=== PATIENT | male | born 1995 | race African-American/Black ===

== ENCOUNTER 2019-02-08 00:23 | Emergency (ER) | payer MEDICAID, SELFPAY ==
[2019-02-08 00:24] VITALS: BP 127/84; PULSE 73; RESP 18; TEMP 36.8; O2SAT 99; BMI 24.2
--- NOTE | 2019-02-08 00:48 | CT_ITS ---
STUDY: CT ABDOMEN AND PELVIS WITHOUT CONTRAST REASON FOR EXAM: Male, 23 years old. ABDOMEN PAIN,NAUSEA,vomiting and diarrhea since yesterday-some episodes with blood in stool -- Hx:cavernoma with a shunt RADIATION DOSAGE (If Supplied By Facility): CTDIvol = ( 6.27 ) mGy, DLP = ( 324.27 ) mGycm TECHNIQUE: Transaxial images were obtained from the dome of the diaphragm to the symphysis pubis without oral contrast, and without intravenous contrast. Sagittal and coronal images were reconstructed. Individualized dose optimization techniques were used for this CT. COMPARISON: None. FINDINGS: There is mild atelectasis in the visualized lung bases. The visualized portions of the heart are within normal limits. There is a right-sided MIXED CROP FARMER shunt catheter, with its tip in the left anterior pelvis. Normal liver. Normal gallbladder and extrahepatic biliary system. Normal spleen. Normal pancreas. Normal bilateral adrenal glands. Normal right kidney. Normal left kidney. Normal visualized stomach. Normal small intestine. Normal colon. The appendix is visualized on axial images 133-142 and it appears normal.. Normal abdominal aorta. Normal inferior vena cava. Normal retroperitoneum. Normal urinary bladder. There is a small amount of free fluid in the posterior cul-de-sac and the pelvis, there are indeterminate etiology. This might be related to the MIXED CROP FARMER shunt catheter. Normal abdominal wall. Normal osseous structures. CT/Abdomen/Pelvis without Cont IMPRESSION: MIXED CROP FARMER shunt catheter in place. Small amount of free fluid in the posterior cul-de-sac of the pelvis, indeterminate significance. Otherwise, normal noncontrast CT scan. No evidence for appendicitis or diverticulitis. No evidence for bowel obstruction or ileus. Electronically Signed: Andrés Jang MD at 1:56 EST , Service support ,
--- NOTE | 2019-02-08 00:49 | ED.VIS.GEN ---
History of Present Illness Chief Complaint: Abd Pain Informant: Patient Narrative: Patient presents with nausea vomiting since yesterday. He has had 6 episodes of emesis. He has had diffuse abdominal cramping with occasional sharp pains. He has had 20 episodes of diarrhea. It started out loose and watery and the last few is had some blood mixed in. No recent antibiotics. He is never had this before. Current severity is mild to moderate. No home treatment. No recent trips out of the country. No fevers or chills. Has a chronic COMMERCIAL OCEAN CLAMMER shunt for hydrocephalus over the last 4 years. He stated he is not having problems with this. It does give him chronic pain which she stated is at its baseline. Denies any visual difficulties. Denies any urinary symptoms or back pain. Past Medical History - Allergies and Home Meds Allergies/Adverse Reactions: Allergies fosphenytoin Adverse Reaction (Verified 02/08/19 00:26) Itching Primary Care Physician: NOT,DEFINED [NON-STAFF] - Prior records reviewed: Yes Past Medical History: - - Hydrocephalus, stroke Surgical History: - - COMMERCIAL OCEAN CLAMMER shunt Lives: With Family Smoking Status: Current every day smoker Alcohol: None Drugs: None Review of Systems General: Denies: Chills, Fever, Sweats Eyes: Denies: Visual changes - bilaterally, Diplopia ENT: Denies: Rhinorrhea, Sore throat Cardiovascular: Denies: Chest pain, Palpitations Respiratory: Denies: Dyspnea, Cough, Dyspnea on exertion Gastrointestinal: Reports: Abdominal pain, Nausea, Vomiting, Diarrhea, Hematochezia. Denies: Melena Genitourinary: Denies: Dysuria, Hematuria, Frequency Musculoskeletal: Denies: Back pain, Extremity Pain Skin: Denies: Rash, Wounds Neurological: Denies: Headache, Weakness, Numbness Physical Exam Vital Signs/Narrative: Vital Signs Temp Pulse Resp BP Pulse Ox 02/08/19 00:24 98.2 F 73 18 127/84 H 99 General: Well nourished, Well developed, No Acute Distress Head: Normocephalic, Atraumatic Eyes: Perrl, EOMI ENT: Moist mucous membranes, No rhinorrhea Neck: Supple, Nontender Cardiovascular: Regular rate, Regular rhythm, No murmurs Respiratory: No distress, CTA bilaterally, Chest nontender Abdomen: Soft, Nontender, Nondistended, Normal bowel sounds Back: Nontender, Normal Inspection Extremities: Nontender, No edema Skin: Normal color, No rash Neurological: Alert, Oriented x3, Cranial nerves II-XII grossly intact, Normal Strength, Normal Sensation Psychological: Normal affect, Normal Mood Diagnostic/Tx/Re-eval - Medical Decision Making IV fluids, Zofran, morphine. Lab work and CT abdomen pelvis obtained. Lab work shows no significant abnormalities. Lipase is mildly low. Liver function test negative. CBC shows no leukocytosis. CT abdomen pelvis shows mild fluid in the cul-de-sac otherwise nothing acute. At this time I feel the patient likely has infectious hemorrhagic gastroenteritis. He will be given ciprofloxacin first dose here. He will continue this at home. He will be given Zofran for home. Feels much better after treatment. ED Disposition - Plan for ED Patient: Disposition: Home or Assisted Living Diagnosis: Hemorrhagic enteritis Instructions: Bacterial Gastroenteritis Prescriptions: Ciprofloxacin [Cipro] 500 mg PO BID #14 tab Prescription Printed Ondansetron [Zofran Odt] 4 mg PO Q8H PRN PRN #10 tab PRN Reason: Nausea Prescription Printed Referrals: Oh Hutton DO [NON CLINICAL AFFILIATE] -
[2019-02-08 00:59] LABS: Absolute Lymphocyte Count 1.65 X10^3/uL (0.83-4.51); Absolute Neutrophil Count 1.5 X10^3/uL (2.0-7.7); Basophil# 0.02 X10^3/uL; Basophil% 0.5 % (0-1); Eosinophil# 0.08 X10^3/uL; Eosinophils% 2.1 % (0-5); Hematocrit 44.5 % (40-54); Lymphocyte # 1.65 X10^3/ul (4.0); Lymphocyte % 43.9 % (19-41); Mean Corp Hgb Conc 33.7 g/dL (32-36); Mean Corpuscular Hgb 29.6 pg (27.0-32.0); Mean Corpuscular Volume 87.8 fL (80-94); Mean Platelet Vol. 9.8 fl (6.2-12.0); Monocyte# 0.47 X10^3/uL; Monocyte% 12.5 % (0-10); NRBC Flagged by Analyzer 0 % (0-5); Neutrophil # 1.53 X10^3/uL (2.7-7.7); Neutrophil % 40.7 % (47-70); Platelet Count 215 K/mm3 (150-450); RBC Distribution Width CV 12.4 % (11.6-14.6); RBC Distribution Width SD 39.9 fl (35.1-43.9); Red Blood Count 5.07 M/mm3 (4.6-6.2); White Blood Count 3.8 K/mm3 (4.4-11.0)
[2019-02-08] MEDS: Ondansetron 4 MG/2 ML Vial IV (01:00)
[2019-02-08] MEDS: 0.9% Normal Saline 1,000 ML 1000 ML IV (01:00)
[2019-02-08] MEDS: Morphine 4 MG/ML Syringe IV (01:02)
[2019-02-08 01:15] LABS: ALB/GLOB Ratio 1.1 RATIO (0.9-2.4); AST(SGOT) 8 U/L (15-37); Alanine Aminotransfer ALT/SGPT 19 U/L (16-61); Albumin, Serum 3.9 g/dL (3.2-5.0); Alkaline Phosphatase 58 U/L (45-117); Anion Gap 5 (5-15); BUN 17 mg/dL (7-18); BUN/Creat Ratio 13.7 RATIO (10-20); Calcium,Total 9.3 mg/dL (8.5-10.1); Chloride 107 mmol/L (98-107); Creatinine, Serum 1.24 mg/dL (0.70-1.30); EST Glomerular Filtration Rate 78 mL/min (>60); Est Glom Filt Rate - Afr Amer 95 mL/min (>60); Estimated Creatinine Clearance 94.23 ml/min; Globulin 3.7 g/dL (2.2-4.2); Glucose 95 mg/dL (74-106); Lipase 43 U/L (73-393); Potassium 3.8 mmol/L (3.5-5.1); Protein, Total 7.6 g/dL (6.4-8.2); Sodium Level 140 mmol/L (136-145)
[2019-02-08] MEDS: Ciprofloxacin 500 MG Tablet PO (03:07)
[2019-02-08 03:12] VITALS: BP 122/60; PULSE 60; RESP 18; O2SAT 100
== END 2019-02-08 03:13 | disposition home or self-care (01) ==
PROVIDERS: Emergency Provider Emergency Medicine; Family Provider Pediatrics; PCP Pediatrics
DX: K52.9 Noninfective gastroenteritis and colitis, unspecified (principal); G91.9 Hydrocephalus, unspecified; Z86.73 Personal history of transient ischemic attack (TIA), and cerebral infarction without residual deficits; Z98.2 Presence of cerebrospinal fluid drainage device; Z46.82 Encounter for fitting and adjustment of non-vascular catheter; G89.29 Other chronic pain; F17.200 Nicotine dependence, unspecified, uncomplicated
CPT/HCPCS: 74176; 80053; 83690; 85025; 96361; 96374; 96375; 99284; J7030; A4216; J2405

== ENCOUNTER 2019-03-28 09:13 | Emergency (ER) | payer MEDICAID, SELFPAY ==
[2019-03-28 09:15] VITALS: BP 154/73; PULSE 130; RESP 35; TEMP 36.2; O2SAT 92; BMI 22.8
--- NOTE | 2019-03-28 09:16 | CT_ITS ---
STUDY: CT BRAIN WITHOUT CONTRAST REASON FOR EXAM: Male, 23 years old. Found unresponsive on floor, no gag reflex, seizures today, hx of seizures, shunt, cavernoma. RADIATION DOSAGE (If Supplied By Facility): CTDIvol = ( 44.99 ) mGy, DLP = ( 796.11 ) mGycm TECHNIQUE: Transaxial CT imaging of the brain was performed without administration of intravenous contrast material. Individualized dose optimization techniques were used for this CT. COMPARISON: Comparison is made with prior study dated February 26, 2015. FINDINGS: Normal soft tissue structures. Prior right frontal craniotomy. A right-sided ventricular shunt tube is seen with the tip in the right frontal horn. Normal size ventricles and extra-axial spaces for the patient''s age. At this time, there is evidence of encephalomalacia in the right frontal lobe with the mild dilatation of the right frontal horn due to the encephalomalacia. This most likely is due to prior surgical intervention of the patient''s known cavernoma. Normal basal ganglia and thalami. Normal brainstem. Normal cerebellum. There is no intracranial hemorrhage. There are no findings of an acute ischemic infarction. Partial opacification of the maxillary sinuses as well as the ethmoid sinuses bilaterally. CT/Brain/Head without Contrast IMPRESSION: Encephalomalacia in the right frontal lobe most likely postoperative in nature. Sinusitis. Electronically Signed: Kanu Almaraz, at 9:56 EST , Service support ,
--- NOTE | 2019-03-28 09:16 | EKG12_ITS ---
Test Reason : SEIZURE Blood Pressure : / mmHG Vent. Rate : 118 BPM Atrial Rate : 118 BPM P-R Int : 152 ms QRS Dur : 086 ms QT Int : 340 ms P-R-T Axes : 080 079 001 degrees QTc Int : 476 ms Sinus tachycardia Nonspecific ST-T Changes Abnormal ECG Confirmed by GARRY VERA, CAROL ([id number]), news assignment editor KIRSTEN SOUZA ([id number]) on 04/02/2019 2:27:16 PM Referred By: PURNIMA Confirmed By:FARRAH CASTAÑEDA MD
--- NOTE | 2019-03-28 09:25 | ED.RN ---
arrived by squad with spontaneous on ra though no gag reflex upon suctioning and no response to painful stimuli. pt to radiology with jennyfer lu.
[2019-03-28 09:34] LABS: Absolute Lymphocyte Count 9.68 X10^3/uL (0.83-4.51); Absolute Neutrophil Count 0.3 X10^3/uL (2.0-7.7); Basophil# 0.06 X10^3/uL; Basophil% 0.6 % (0-1); Eosinophil# 0.09 X10^3/uL; Eosinophils% 0.8 % (0-5); Hematocrit 49.2 % (40-54); Hemoglobin 14.7 g/dL (13.0-16.5); Lymphocyte # 9.68 X10^3/ul (4.0); Lymphocyte % 90.6 % (19-41); Mean Corp Hgb Conc 29.9 g/dL (32-36); Mean Corpuscular Hgb 29.5 pg (27.0-32.0); Mean Corpuscular Volume 98.6 fL (80-94); Mean Platelet Vol. 11.3 fl (6.2-12.0); Monocyte% 5.6 % (0-10); NRBC Flagged by Analyzer 0 % (0-5); Neutrophil # 0.25 X10^3/uL (2.7-7.7); Neutrophil % 2.3 % (47-70); POSITIVE DIFFERENTIAL YES; POSITIVE MORPHOLOGY YES; Platelet Count 177 K/mm3 (150-450); RBC Distribution Width CV 12.7 % (11.6-14.6); RBC Distribution Width SD 45.9 fl (35.1-43.9); Red Blood Count 4.99 M/mm3 (4.6-6.2); White Blood Count 10.7 K/mm3 (4.4-11.0)
[2019-03-28] MEDS: Etomidate 20 MG/10 ML Vial IV (09:35)
[2019-03-28] MEDS: Rocuronium Bromide 50 MG/5 ML Vial 70 MG IV (09:36)
[2019-03-28 09:40] VITALS: PULSE 116; RESP 16; O2SAT 100
[2019-03-28 09:43] LABS: Differential Indicated SCAN CRITERIA MET
[2019-03-28] MEDS: 0.9% Normal Saline 1,000 ML 1000 ML IV (09:43)
--- NOTE | 2019-03-28 09:49 | ED.DCSUM_ITS ---
History of Present Illness Chief Complaint: Seizure Informant: Patient Onset: Today Context: Sudden Onset Timing: Continuous Current Severity: Severe Maximum Severity: Severe Narrative: The patient is a 23-year-old male with history of seizure disorder and AVMs that presents to the emergency department with recurrent seizure. The patient was found by his roommate this morning. He was on the side of his bed and not responsive. Squad was called. On squad arrival, the patient had 2 witnessed tonic-clonic seizures. He did have tongue biting and urinary incontinence. IV was established in the field. He was given 5 mg of Versed. The patient was brought in immediately. The patient is obtunded and gives no history. He has no spontaneous movements. He does have rather coarse lung sounds. He does have a bag of medications with him which are reviewed. He does have prescriptions for Depakote and Keppra, but the most recent fill date was last year. Prior similar symptoms: Yes Recent Illness/Hospitalization: Yes Past Medical History - Allergies and Home Meds Allergies/Adverse Reactions: Allergies fosphenytoin Adverse Reaction (Verified 02/08/19 00:26) Itching Primary Care Physician: Nicholas Schneider MD [Primary Care Provider] - Prior records reviewed: Yes Past Medical History: - - Seizure disorder Surgical History: - - OFFICE SERVICES REPRESENTATIVE shunt Smoking Status: Current every day smoker Review of Systems ROS: Unable to Obtain Physical Exam Vital Signs/Narrative: Vital Signs Temp Pulse Resp BP Pulse Ox 03/28/19 09:15 97.1 F L 130 H 35 H 154/73 H 92 Inital Vital Signs reviewed: Yes General: Acute Distress Head: Normocephalic, Atraumatic Eyes: Perrl ENT: Moist mucous membranes Cardiovascular: Regular rate, Tachycardia Respiratory: Rhonchi, Decreased Air Movement Abdomen: Soft, Nontender, Nondistended Extremities: Nontender, No edema Skin: No rash. Negative for: Cyanosis Neurological: Stupor, Coma Diagnostic/Tx/Re-eval Chest X-Ray - ED: 1 View, Normal, Heart, Lungs, Mediastinum Clinical Impression(s) from Imaging Studies Brain CT 03/28/19 09:16 IMPRESSION: Encephalomalacia in the right frontal lobe most likely postoperative in nature. Sinusitis. Electronically Signed: Kanu Almaraz, at 9:56 EST , Service support , Abnormal Lab Results 03/28/19 03/28/19 03/28/19 09:20 09:20 10:02 WBC 10.7 RBC 4.99 Hgb 14.7 Hct 49.2 MCV 98.6 H MCH 29.5 MCHC 29.9 L RDW Std Deviation 45.9 H RDW Coeff of Rene 12.7 Plt Count 177 MPV 11.3 Immature Gran % (Auto) 0.100 Neut % (Auto) 2.3 L Lymph % (Auto) 90.6 H [place] % (Auto) 5.6 Eos % (Auto) 0.8 Baso % (Auto) 0.6 Absolute Neuts (auto) 0.3 L Absolute Lymphs (auto) 9.68 H Nucleated RBC % 0 Differential Comment COMMENT Sodium 147 H Potassium 3.7 Chloride 109 H Carbon Dioxide 9.0 L* Anion Gap 29 H BUN 14 Creatinine 1.68 H Estim Creat Clear Calc 75.01 Est GFR (MDRD) Af Amer 67 Est GFR (MDRD) Non-Af 55 L BUN/Creatinine Ratio 8.3 L Glucose 290 H Calcium 10.7 H Total Bilirubin 0.30 AST 14 L ALT 23 Alkaline Phosphatase 90 Total Protein 8.5 H Albumin 3.9 Globulin 4.6 H Albumin/Globulin Ratio 0.8 L Ur Drug Screen Comment - Medical Decision Making The patient presents after seizure without return to consciousness. He does have some gaze deviation, but no rhythmic moving of his eyes. The patient was observed for 15 minutes after his Versed and still has not returned to baseline. He has no gag reflex. The patient was intubated. He was given rocuronium and etomidate. He was intubated with a 7.5 tube and a MAC 3 blade. This was done without complication. He had bilateral breath sounds and color change. There was secretions in the retropharynx and some blood from his tongue biting. Patient was sent immediately for head CT which shows encephalomalacia without evidence of bleeding. His shunt is intact. Chest x-ray confirms placement of the tube. The patient was given 17 mg/kg of Depakote as he is on this at home along with a gram of Keppra. He is obviously going to need a higher level of care. The patient was discussed with Dr. Gonsalez at [facility]. He agreed with plan for transfer. The friend at the bedside is updated. The patient will be transferred to the ICU. We did obtain a blood gas prior to transfer. The patient was significantly acidotic. I did discuss this with the real estate salesperson at [facility]. The patient was given 3 A of bicarb and started on bicarb drip. His ventilator settings were titrated to increase ventilation. Repeat ABG was markedly improved. The patient will be transferred. Impression 1. Status epilepticus 2. Acute encephalopathy 3. Respiratory failure secondary to status epilepticus 4. Intubation by ED physician - Critical Care Time Critical care time (excluding procedures): 30-74 minutes, Discussing w/Patient &/or Family/Tank Truck Driver, Discussing w/Consultants, Arranging Admission or Transfer, Performing Direct Patient Care at Bedside Procedures Procedure(s): Intubation done. Please see note. ED Disposition - Plan for ED Patient: Referrals: Nicholas Schneider MD [Primary Care Provider] -
--- NOTE | 2019-03-28 09:50 | RAD_ITS ---
STUDY: X-RAY CHEST REASON FOR EXAM: Male, 23 years old. ETT PLACEMENT AND NG PLACEMENT. TECHNIQUE: Single AP portable view of the chest. COMPARISON: None. FINDINGS: The tip of the endotracheal tube is at 4 cm proximal to the arely. A nasogastric tube is seen with the tip in the proximal fundus of the stomach just distal to the gastroesophageal junction. The lungs are clear and expanded. There is no demonstrated pleural abnormality. Normal size heart. Normal mediastinum and pepe. Normal visualized pulmonary arteries. Normal visualized aortic arch and descending thoracic aorta. Normal visualized thoracic spine. Normal visualized ribs, clavicles, and shoulders. There is no demonstrated abnormality of the visualized soft tissue structures of the upper abdomen. RAD/Chest 1 View (Portable) IMPRESSION: The tip of the endotracheal tube is at 4 cm proximal to the arely. The tip of nasogastric tube is in the proximal stomach just distal to the gastroesophageal junction. Electronically Signed: Kanu Almaraz, at 10:27 EST , Service support ,
[2019-03-28 09:57] LABS: ALB/GLOB Ratio 0.8 RATIO (0.9-2.4); AST(SGOT) 14 U/L (15-37); Alanine Aminotransfer ALT/SGPT 23 U/L (16-61); Albumin, Serum 3.9 g/dL (3.2-5.0); Alkaline Phosphatase 90 U/L (45-117); Anion Gap 29 (5-15); BUN 14 mg/dL (7-18); BUN/Creat Ratio 8.3 RATIO (10-20); Calcium,Total 10.7 mg/dL (8.5-10.1); Chloride 109 mmol/L (98-107); Creatinine, Serum 1.68 mg/dL (0.70-1.30); EST Glomerular Filtration Rate 55 mL/min (>60); Est Glom Filt Rate - Afr Amer 67 mL/min (>60); Estimated Creatinine Clearance 75.01 ml/min; Globulin 4.6 g/dL (2.2-4.2); Glucose 290 mg/dL (74-106); Potassium 3.7 mmol/L (3.5-5.1); Protein, Total 8.5 g/dL (6.4-8.2); Sodium Level 147 mmol/L (136-145)
[2019-03-28 10:06] LABS: Bacteria 0 SEEN /hpf (None Seen); Mucous, Urine 0 SEEN /hpf (<or=2+); Squamous Epithelial Cells - UA 0 SEEN /hpf (0-5); White Blood Cells 0 SEEN /hpf (0-5)
[2019-03-28] MEDS: 0.9% Normal Saline 1,000 ML 999 ML IV ×2 (10:06→11:07)
[2019-03-28 10:14] VITALS: BP 155/92; PULSE 129; RESP 14; O2SAT 98
[2019-03-28 10:19] LABS: Color, Urine Yellow (Yellow); Glucose, Dipstick 100 mg/dl (Normal); Ketone-Dipstick Negative (Negative); Leukocyte Esterase-Dipstick Negative /ul (Negative); Nitrite-Dipstick Negative (Negative); Occult Blood-Urine 50 /ul (Negative); Protein-Dipstick 30 mg/dl (Negative); Specific Gravity, Urine 1.015 (1.002-1.030); Urine Bilirubin Dipstick Negative (Negative); Urine Clarity Clear (Clear); Urine Urobilinogen Normal (Normal)
[2019-03-28 10:22] LABS: Lactic Acid 25.4 mmol/L (0.4-1.9)
[2019-03-28 10:26] LABS: Base Excess -28 mmol/L (-2 to +2); Bicarbonate 7.4 mmol/L (22-26); Blood Gas Specimen Type ART; FI02 40; Mode A-C; O2 Delivery Device Vent; PEEP 5; PO2 127 mmHG (75-100); RR 14; SITE R Radial; SO2 93 % (95-99); Time Given 1017; Total Carbon Dioxide 9 mmol/L; Vt 500; pCO2 49.8 mmHg (35-45); pH 6.78 (7.35-7.45)
[2019-03-28 10:43] LABS: Red Blood Cells-Urine 0-5 SEEN /hpf (0-5)
[2019-03-28] MEDS: levETIRAcetam IV 1,000 MG/100 ML BAG 400 MG IV (10:51)
[2019-03-28] MEDS: Sodium Bicarbonate 8.4% 50 ML Syringe 150 MEQ IV (10:53)
[2019-03-28 10:56] VITALS: BP 189/115; PULSE 124; RESP 22; O2SAT 99
[2019-03-28 11:05] LABS: Valproic Acid (Depakene) Level 16 ug/mL (50-100)
[2019-03-28 11:07] LABS: CPK Total, Creatine Kinase 143 U/L (39-308)
[2019-03-28 11:15] LABS: Base Excess -10 mmol/L (-2 to +2); Bicarbonate 16.8 mmol/L (22-26); Blood Gas Specimen Type ART; FI02 40; Mode A-C; O2 Delivery Device Vent; PEEP 5; PO2 79 mmHG (75-100); RR 18; SITE L Radial; SO2 94 % (95-99); Time Given 1107; Total Carbon Dioxide 18 mmol/L; Vt 500; pCO2 37.4 mmHg (35-45); pH 7.26 (7.35-7.45)
[2019-03-28 11:17] LABS: Amphetamine Urine VISTA NEGATIVE (<1000 ng/mL); Barbiturate Urine VISTA NEGATIVE (< 200 ng/mL); Benzodiazepine Urine VISTA NEGATIVE (< 200 ng/mL); Cocaine Urine VISTA NEGATIVE (< 300 ng/mL); Ecstacy Urine VISTA NEGATIVE (< 500 ng/mL); Methadone Urine VISTA NEGATIVE (< 300 ng/mL); PCP Urine VISTA NEGATIVE (< 25 ng/mL); THC Urine VISTA POSITIVE (< 50 ng/mL); Vista UDS pH Range 6
[2019-03-28 11:18] VITALS: BP 151/84; PULSE 123; RESP 23; TEMP 36.2; O2SAT 100
--- NOTE | 2019-03-28 11:46 | CPS ---
CRITICAL VALUE SHOWN TO .
[2019-03-28 13:25] LABS: Reflex Lactate? Y
[2019-03-28 15:11] LABS: Pathologist Review Reviewed
== END 2019-03-28 11:18 | disposition short-term general hospital (02) ==
LOC: ED 09:49
PROVIDERS: Emergency Provider Emergency Medicine; PCP Pediatrics
DX: G40.901 Epilepsy, unspecified, not intractable, with status epilepticus (principal); G93.40 Encephalopathy, unspecified; J96.90 Respiratory failure, unspecified, unspecified whether with hypoxia or hypercapnia; Z98.2 Presence of cerebrospinal fluid drainage device; G93.89 Other specified disorders of brain; F17.200 Nicotine dependence, unspecified, uncomplicated; J32.9 Chronic sinusitis, unspecified
CPT/HCPCS: 31500; 36600; 51702; 70450; 71045; 80053; 80164; 80307; 81001; 82550; 82803; 83605; 85025; 93005; 94002; 96365; 96366; 96368; 99251; 99285; J7030; A4216; G0463

== ENCOUNTER → 2020-12-22 05:00 | Outpatient (REF) | payer MEDICAID, SELFPAY ==
[2020-12-22 08:45] LABS: Absolute Lymphocyte Count 2.48 X10^3/uL (0.83-4.51); Absolute Neutrophil Count 1.6 X10^3/uL (2.0-7.7); Basophil# 0.03 X10^3/uL; Basophil% 0.6 % (0-1); Eosinophil# 0.05 X10^3/uL; Eosinophils% 1.1 % (0-5); Hematocrit 35.3 % (40-54); Hemoglobin 11.6 g/dL (13.0-16.5); Lymphocyte # 2.48 X10^3/ul (0.83-4.51); Lymphocyte % 52.5 % (19-41); Mean Corp Hgb Conc 32.9 g/dL (32-36); Mean Corpuscular Hgb 27.3 pg (27.0-32.0); Mean Corpuscular Volume 83.1 fL (80-94); Mean Platelet Vol. 9.8 fl (6.2-12.0); Monocyte# 0.55 X10^3/uL; Monocyte% 11.7 % (0-10); NRBC Flagged by Analyzer 0 % (0-5); Neutrophil # 1.61 X10^3/uL (2.7-7.7); Neutrophil % 34.1 % (47-70); Platelet Count 208 K/mm3 (150-450); RBC Distribution Width SD 48.3 fl (35.1-43.9); Red Blood Count 4.25 M/mm3 (4.6-6.2); White Blood Count 4.7 K/mm3 (4.4-11.0)
[2020-12-22 09:14] LABS: Valproic Acid (Depakene) Level 91 ug/mL (50-100)
[2020-12-22 09:24] LABS: Vitamin B12 394 pg/mL (211-911)
[2020-12-22 09:26] LABS: ALB/GLOB Ratio 0.6 RATIO (0.9-2.4); AST(SGOT) 10 U/L (15-37); Alanine Aminotransfer ALT/SGPT 16 U/L (16-61); Albumin, Serum 2.7 g/dL (3.2-5.0); Alkaline Phosphatase 95 U/L (45-117); Anion Gap 6 (5-15); BUN 15 mg/dL (7-18); BUN/Creat Ratio 16.6 RATIO (10-20); CPK Total, Creatine Kinase 70 U/L (39-308); Calcium,Total 9.2 mg/dL (8.5-10.1); Chloride 107 mmol/L (98-107); EST Glomerular Filtration Rate 111 mL/min (>60); Est Glom Filt Rate - Afr Amer 134 mL/min (>60); Globulin 4.3 g/dL (2.2-4.2); Glucose 90 mg/dL (74-106); Potassium 4.5 mmol/L (3.5-5.1); Sodium Level 139 mmol/L (136-145); T4 Free Direct 1.22 ng/dL (0.76-1.46); Thyroid Stim Hormone (TSH) 0.48 uIU/mL (0.358-3.74)
== END ==
LOC: OLS.SW1020 05:00
PROVIDERS: PCP Pediatrics
DX: G40.309 Generalized idiopathic epilepsy and epileptic syndromes, not intractable, without status epilepticus (principal); M62.81 Muscle weakness (generalized)
CPT/HCPCS: 36415; 80053; 80164; 82088; 82550; 82607; 82746; 82784; 84165; 84207; 84425; 84439; 84443; 85025; 86334

== ENCOUNTER → 2021-01-15 05:00 | Outpatient (REF) | payer MEDICAID, SELFPAY ==
[2021-01-15 08:47] LABS: Absolute Lymphocyte Count 2.98 X10^3/uL (0.83-4.51); Absolute Neutrophil Count 1.7 X10^3/uL (2.0-7.7); Basophil# 0.02 X10^3/uL; Basophil% 0.4 % (0-1); Eosinophil# 0.06 X10^3/uL; Eosinophils% 1.2 % (0-5); Hemoglobin 11.5 g/dL (13.0-16.5); Lymphocyte # 2.98 X10^3/ul (0.83-4.51); Lymphocyte % 57.9 % (19-41); Mean Corp Hgb Conc 31.9 g/dL (32-36); Mean Corpuscular Hgb 27.2 pg (27.0-32.0); Mean Corpuscular Volume 85.1 fL (80-94); Mean Platelet Vol. 10.1 fl (6.2-12.0); Monocyte# 0.39 X10^3/uL; Monocyte% 7.6 % (0-10); NRBC Flagged by Analyzer 0 % (0-5); Neutrophil # 1.69 X10^3/uL (2.7-7.7); Neutrophil % 32.7 % (47-70); Platelet Count 179 K/mm3 (150-450); RBC Distribution Width CV 15.9 % (11.6-14.6); RBC Distribution Width SD 49.6 fl (35.1-43.9); Red Blood Count 4.23 M/mm3 (4.6-6.2); White Blood Count 5.2 K/mm3 (4.4-11.0)
[2021-01-15 09:01] LABS: ALB/GLOB Ratio 0.6 RATIO (0.9-2.4); AST(SGOT) 9 U/L (15-37); Alanine Aminotransfer ALT/SGPT 19 U/L (16-61); Albumin, Serum 2.7 g/dL (3.2-5.0); Alkaline Phosphatase 76 U/L (45-117); Anion Gap 5 (5-15); BUN 11 mg/dL (7-18); BUN/Creat Ratio 11.9 RATIO (10-20); Calcium,Total 9.1 mg/dL (8.5-10.1); Chloride 108 mmol/L (98-107); Creatinine, Serum 0.92 mg/dL (0.70-1.30); EST Glomerular Filtration Rate 108 mL/min (>60); Est Glom Filt Rate - Afr Amer 130 mL/min (>60); Globulin 4.4 g/dL (2.2-4.2); Glucose 86 mg/dL (74-106); Potassium 4.1 mmol/L (3.5-5.1); Protein, Total 7.1 g/dL (6.4-8.2); Sodium Level 140 mmol/L (136-145)
== END ==
LOC: OLS.SW1020 05:00
PROVIDERS: PCP Pediatrics; Visit Provider Family Medicine
DX: R53.81 Other malaise (principal)
CPT/HCPCS: 36415; 80053; 85025

== ENCOUNTER → 2021-01-21 04:00 | Outpatient (REF) | payer MEDICAID, SELFPAY ==
[2021-01-21 08:52] LABS: Valproic Acid (Depakene) Level 62 ug/mL (50-100)
== END ==
LOC: OLS.SW1020 04:00
PROVIDERS: PCP Pediatrics; Referring Provider Family Medicine; Visit Provider Family Medicine
DX: D50.0 Iron deficiency anemia secondary to blood loss (chronic) (principal); M10.9 Gout, unspecified
CPT/HCPCS: 36415; 80164

== ENCOUNTER → 2021-02-03 05:25 | Outpatient (REF) | payer MEDICAID, SELFPAY | LOC: OLS.SW1020 05:25 | PROVIDERS: PCP Pediatrics; Visit Provider Family Medicine | DX: U07.1 COVID-19 (principal) | CPT/HCPCS: 87635; U0003; U0005 ==

== ENCOUNTER → 2021-03-17 | Outpatient (REF) | payer SELFPAY ==
[2021-03-17 08:36] LABS: Absolute Lymphocyte Count 2.69 X10^3/uL (0.83-4.51); Absolute Neutrophil Count 1.9 X10^3/uL (2.0-7.7); Basophil# 0.02 X10^3/uL; Basophil% 0.4 % (0-1); Eosinophil# 0.09 X10^3/uL; Eosinophils% 1.7 % (0-5); Hematocrit 37.2 % (40-54); Hemoglobin 11.5 g/dL (13.0-16.5); Lymphocyte # 2.69 X10^3/ul (0.83-4.51); Lymphocyte % 51.6 % (19-41); Mean Corp Hgb Conc 30.9 g/dL (32-36); Mean Corpuscular Hgb 27.6 pg (27.0-32.0); Mean Corpuscular Volume 89.2 fL (80-94); Mean Platelet Vol. 10.8 fl (6.2-12.0); Monocyte# 0.51 X10^3/uL; Monocyte% 9.8 % (0-10); NRBC Flagged by Analyzer 0 % (0-5); Neutrophil # 1.89 X10^3/uL (2.7-7.7); Neutrophil % 36.3 % (47-70); Platelet Count 184 K/mm3 (150-450); RBC Distribution Width CV 15.8 % (11.6-14.6); RBC Distribution Width SD 51.9 fl (35.1-43.9); Red Blood Count 4.17 M/mm3 (4.6-6.2); White Blood Count 5.2 K/mm3 (4.4-11.0)
[2021-03-17 08:54] LABS: Amphetamine Urine VISTA NEGATIVE (<1000 ng/mL); Barbiturate Urine VISTA NEGATIVE (< 200 ng/mL); Benzodiazepine Urine VISTA NEGATIVE (< 200 ng/mL); Cocaine Urine VISTA NEGATIVE (< 300 ng/mL); Ecstacy Urine VISTA NEGATIVE (< 500 ng/mL); Methadone Urine VISTA NEGATIVE (< 300 ng/mL); PCP Urine VISTA NEGATIVE (< 25 ng/mL); THC Urine VISTA POSITIVE (< 50 ng/mL); Vista UDS pH Range 6
[2021-03-17 08:54] LABS: ALB/GLOB Ratio 0.7 RATIO (0.9-2.4); AST(SGOT) 14 U/L (15-37); Alanine Aminotransfer ALT/SGPT 17 U/L (16-61); Albumin, Serum 2.8 g/dL (3.2-5.0); Alkaline Phosphatase 74 U/L (45-117); Anion Gap 4 (5-15); BUN 18 mg/dL (7-18); BUN/Creat Ratio 18.1 RATIO (10-20); Chloride 111 mmol/L (98-107); EST Glomerular Filtration Rate 99 mL/min (>60); Est Glom Filt Rate - Afr Amer 119 mL/min (>60); Globulin 4.2 g/dL (2.2-4.2); Glucose 86 mg/dL (74-106); Potassium 4.8 mmol/L (3.5-5.1); Sodium Level 145 mmol/L (136-145)
== END | disposition home or self-care (01) ==
LOC: OLS.SW1020 05:00
PROVIDERS: PCP Pediatrics; Visit Provider Family Medicine
DX: R53.81 Other malaise (principal)
CPT/HCPCS: 36415; 80053; 80307; 85025

== ENCOUNTER → 2021-04-14 | Outpatient (REF) | payer SELFPAY ==
[2021-04-14 07:05] LABS: Hematocrit 44.1 % (40-54); Hemoglobin 14.6 g/dL (13.0-16.5); Mean Corp Hgb Conc 33.1 g/dL (32-36); Mean Corpuscular Hgb 28.8 pg (27.0-32.0); Mean Platelet Vol. 10.6 fl (6.2-12.0); Platelet Count 198 K/mm3 (150-450); RBC Distribution Width CV 14.8 % (11.6-14.6); RBC Distribution Width SD 47.5 fl (35.1-43.9); Red Blood Count 5.07 M/mm3 (4.6-6.2)
[2021-04-14 07:24] LABS: ALB/GLOB Ratio 0.7 RATIO (0.9-2.4); AST(SGOT) 11 U/L (15-37); Alanine Aminotransfer ALT/SGPT 22 U/L (16-61); Albumin, Serum 3.5 g/dL (3.2-5.0); Alkaline Phosphatase 84 U/L (45-117); Anion Gap 3 (5-15); BUN 10 mg/dL (7-18); BUN/Creat Ratio 10.6 RATIO (10-20); Calcium,Total 9.7 mg/dL (8.5-10.1); Chloride 104 mmol/L (98-107); Creatinine, Serum 0.94 mg/dL (0.70-1.30); EST Glomerular Filtration Rate 105 mL/min (>60); Est Glom Filt Rate - Afr Amer 127 mL/min (>60); Glucose 81 mg/dL (74-106); Potassium 4.3 mmol/L (3.5-5.1); Protein, Total 8.5 g/dL (6.4-8.2); Sodium Level 136 mmol/L (136-145)
== END | disposition home or self-care (01) ==
LOC: OLS.SW1020 05:00
PROVIDERS: PCP Pediatrics; Visit Provider Family Medicine
DX: R53.81 Other malaise (principal)
CPT/HCPCS: 36415; 80053; 85027

== ENCOUNTER → 2021-05-12 | Outpatient (REF) | payer SELFPAY ==
[2021-05-12 10:27] LABS: Absolute Lymphocyte Count 2.54 X10^3/uL (0.83-4.51); Absolute Neutrophil Count 2.7 X10^3/uL (2.0-7.7); Basophil# 0.03 X10^3/uL; Basophil% 0.5 % (0-1); Eosinophil# 0.02 X10^3/uL; Eosinophils% 0.3 % (0-5); Hematocrit 40.9 % (40-54); Hemoglobin 13.6 g/dL (13.0-16.5); Lymphocyte # 2.54 X10^3/ul (0.83-4.51); Lymphocyte % 43.7 % (19-41); Mean Corp Hgb Conc 33.3 g/dL (32-36); Mean Corpuscular Hgb 28.5 pg (27.0-32.0); Mean Corpuscular Volume 85.7 fL (80-94); Mean Platelet Vol. 10.5 fl (6.2-12.0); Monocyte# 0.51 X10^3/uL; Monocyte% 8.8 % (0-10); NRBC Flagged by Analyzer 0 % (0-5); Neutrophil % 46.5 % (47-70); Platelet Count 205 K/mm3 (150-450); RBC Distribution Width CV 14.3 % (11.6-14.6); RBC Distribution Width SD 44.7 fl (35.1-43.9); Red Blood Count 4.77 M/mm3 (4.6-6.2); White Blood Count 5.8 K/mm3 (4.4-11.0)
[2021-05-12 10:53] LABS: ALB/GLOB Ratio 0.7 RATIO (0.9-2.4); AST(SGOT) 13 U/L (15-37); Alanine Aminotransfer ALT/SGPT 22 U/L (16-61); Albumin, Serum 3.4 g/dL (3.2-5.0); Alkaline Phosphatase 81 U/L (45-117); Anion Gap 5 (5-15); BUN 13 mg/dL (7-18); BUN/Creat Ratio 11.6 RATIO (10-20); Calcium,Total 9.2 mg/dL (8.5-10.1); Chloride 105 mmol/L (98-107); Creatinine, Serum 1.12 mg/dL (0.70-1.30); EST Glomerular Filtration Rate 86 mL/min (>60); Est Glom Filt Rate - Afr Amer 104 mL/min (>60); Globulin 4.6 g/dL (2.2-4.2); Glucose 82 mg/dL (74-106); Potassium 3.9 mmol/L (3.5-5.1); Sodium Level 137 mmol/L (136-145)
== END | disposition home or self-care (01) ==
LOC: OLS.SW1020 05:55
PROVIDERS: PCP Pediatrics; Visit Provider Family Medicine
DX: R53.81 Other malaise (principal)
CPT/HCPCS: 36415; 80053; 85025

== ENCOUNTER → 2021-05-19 | Outpatient (REF) | payer SELFPAY ==
[2021-05-19 07:36] LABS: Valproic Acid (Depakene) Level 90 ug/mL (50-100)
[2021-05-24 17:04] LABS: KEPPRA (LEVETIRACETAM) 42.2 ug/mL (10.0-40.0)
== END | disposition home or self-care (01) ==
LOC: OLS.SW1020 05:00
PROVIDERS: PCP Pediatrics; Visit Provider Family Medicine
DX: Z79.899 Other long term (current) drug therapy (principal)
CPT/HCPCS: 36415; 80164; 80177

== ENCOUNTER → 2021-05-26 | Outpatient (REF) | payer SELFPAY ==
[2021-06-01 14:26] LABS: KEPPRA (LEVETIRACETAM) 40.7 ug/mL (10.0-40.0)
== END | disposition home or self-care (01) ==
LOC: OLS.SW1020 05:45
PROVIDERS: Visit Provider Family Medicine
DX: Z79.899 Other long term (current) drug therapy (principal); G40.901 Epilepsy, unspecified, not intractable, with status epilepticus
CPT/HCPCS: 36415; 80177

== ENCOUNTER → 2021-06-09 | Outpatient (REF) | payer SELFPAY ==
[2021-06-09 08:19] LABS: Absolute Lymphocyte Count 2.25 X10^3/uL (0.83-4.51); Absolute Neutrophil Count 1.7 X10^3/uL (2.0-7.7); Basophil# 0.03 X10^3/uL; Basophil% 0.7 % (0-1); Eosinophil# 0.03 X10^3/uL; Eosinophils% 0.7 % (0-5); Hematocrit 36.7 % (40-54); Hemoglobin 11.8 g/dL (13.0-16.5); Lymphocyte # 2.25 X10^3/ul (0.83-4.51); Mean Corp Hgb Conc 32.2 g/dL (32-36); Mean Corpuscular Hgb 28.9 pg (27.0-32.0); Mean Platelet Vol. 11.3 fl (6.2-12.0); Monocyte# 0.56 X10^3/uL; Monocyte% 12.2 % (0-10); NRBC Flagged by Analyzer 0 % (0-5); Neutrophil # 1.71 X10^3/uL (2.7-7.7); Neutrophil % 37.2 % (47-70); Platelet Count 167 K/mm3 (150-450); RBC Distribution Width CV 14.9 % (11.6-14.6); RBC Distribution Width SD 49.4 fl (35.1-43.9); Red Blood Count 4.08 M/mm3 (4.6-6.2); White Blood Count 4.6 K/mm3 (4.4-11.0)
[2021-06-09 08:55] LABS: ALB/GLOB Ratio 0.7 RATIO (0.9-2.4); AST(SGOT) 9 U/L (15-37); Alanine Aminotransfer ALT/SGPT 15 U/L (16-61); Albumin, Serum 2.9 g/dL (3.2-5.0); Alkaline Phosphatase 75 U/L (45-117); Anion Gap 6 (5-15); BUN 10 mg/dL (7-18); BUN/Creat Ratio 9.7 RATIO (10-20); Calcium,Total 8.5 mg/dL (8.5-10.1); Chloride 106 mmol/L (98-107); Creatinine, Serum 1.03 mg/dL (0.70-1.30); EST Glomerular Filtration Rate 95 mL/min (>60); Est Glom Filt Rate - Afr Amer 115 mL/min (>60); Glucose 92 mg/dL (74-106); Potassium 3.7 mmol/L (3.5-5.1); Protein, Total 6.9 g/dL (6.4-8.2); Sodium Level 141 mmol/L (136-145)
== END | disposition home or self-care (01) ==
LOC: OLS.SW1020 05:00
PROVIDERS: Visit Provider Family Medicine
DX: R53.81 Other malaise (principal); M62.82 Rhabdomyolysis; D50.0 Iron deficiency anemia secondary to blood loss (chronic)
CPT/HCPCS: 36415; 80053; 85025

== ENCOUNTER → 2021-07-07 | Outpatient (REF) | payer SELFPAY ==
[2021-07-07 09:00] LABS: Absolute Lymphocyte Count 2.38 X10^3/uL (0.83-4.51); Absolute Neutrophil Count 1.3 X10^3/uL (2.0-7.7); Basophil# 0.03 X10^3/uL; Basophil% 0.7 % (0-1); Eosinophils% 2.4 % (0-5); Hematocrit 38.8 % (40-54); Hemoglobin 12.7 g/dL (13.0-16.5); Lymphocyte # 2.38 X10^3/ul (0.83-4.51); Lymphocyte % 57.8 % (19-41); Mean Corp Hgb Conc 32.7 g/dL (32-36); Mean Corpuscular Hgb 28.6 pg (27.0-32.0); Mean Corpuscular Volume 87.4 fL (80-94); Mean Platelet Vol. 10.6 fl (6.2-12.0); Monocyte# 0.32 X10^3/uL; Monocyte% 7.8 % (0-10); NRBC Flagged by Analyzer 0 % (0-5); Neutrophil # 1.29 X10^3/uL (2.7-7.7); Neutrophil % 31.3 % (47-70); Platelet Count 160 K/mm3 (150-450); RBC Distribution Width CV 14.6 % (11.6-14.6); RBC Distribution Width SD 47.5 fl (35.1-43.9); Red Blood Count 4.44 M/mm3 (4.6-6.2); White Blood Count 4.1 K/mm3 (4.4-11.0)
[2021-07-07 09:27] LABS: ALB/GLOB Ratio 0.7 RATIO (0.9-2.4); AST(SGOT) 14 U/L (15-37); Alanine Aminotransfer ALT/SGPT 20 U/L (16-61); Alkaline Phosphatase 70 U/L (45-117); Anion Gap 6 (5-15); BUN 10 mg/dL (7-18); BUN/Creat Ratio 10.1 RATIO (10-20); Calcium,Total 9.3 mg/dL (8.5-10.1); Chloride 107 mmol/L (98-107); Creatinine, Serum 0.99 mg/dL (0.70-1.30); EST Glomerular Filtration Rate 99 mL/min (>60); Est Glom Filt Rate - Afr Amer 120 mL/min (>60); Globulin 4.2 g/dL (2.2-4.2); Glucose 76 mg/dL (74-106); Potassium 4.2 mmol/L (3.5-5.1); Protein, Total 7.2 g/dL (6.4-8.2); Sodium Level 138 mmol/L (136-145)
== END | disposition home or self-care (01) ==
LOC: OLS.SW1020 04:00
PROVIDERS: Referring Provider Family Medicine; Visit Provider Family Medicine
DX: R53.81 Other malaise (principal); D57.3 Sickle-cell trait
CPT/HCPCS: 36415; 80053; 85025

== ENCOUNTER → 2021-08-04 | Outpatient (REF) | payer SELFPAY ==
[2021-08-04 08:31] LABS: Absolute Lymphocyte Count 3.31 X10^3/uL (0.83-4.51); Absolute Neutrophil Count 1.6 X10^3/uL (2.0-7.7); Basophil# 0.03 X10^3/uL; Basophil% 0.5 % (0-1); Eosinophil# 0.08 X10^3/uL; Eosinophils% 1.5 % (0-5); Hemoglobin 11.4 g/dL (13.0-16.5); Lymphocyte # 3.31 X10^3/ul (0.83-4.51); Lymphocyte % 60.1 % (19-41); Mean Corp Hgb Conc 32.6 g/dL (32-36); Mean Corpuscular Hgb 29.2 pg (27.0-32.0); Mean Corpuscular Volume 89.5 fL (80-94); Mean Platelet Vol. 10.6 fl (6.2-12.0); Monocyte# 0.44 X10^3/uL; NRBC Flagged by Analyzer 0 % (0-5); Neutrophil # 1.64 X10^3/uL (2.7-7.7); Neutrophil % 29.7 % (47-70); Platelet Count 180 K/mm3 (150-450); RBC Distribution Width CV 14.9 % (11.6-14.6); RBC Distribution Width SD 49.3 fl (35.1-43.9); Red Blood Count 3.91 M/mm3 (4.6-6.2); White Blood Count 5.5 K/mm3 (4.4-11.0)
[2021-08-04 08:45] LABS: ALB/GLOB Ratio 0.7 RATIO (0.9-2.4); AST(SGOT) 8 U/L (15-37); Alanine Aminotransfer ALT/SGPT 13 U/L (16-61); Albumin, Serum 2.9 g/dL (3.2-5.0); Alkaline Phosphatase 76 U/L (45-117); Anion Gap 3 (5-15); BUN 15 mg/dL (7-18); BUN/Creat Ratio 14.7 RATIO (10-20); Calcium,Total 9.4 mg/dL (8.5-10.1); Chloride 108 mmol/L (98-107); Creatinine, Serum 1.02 mg/dL (0.70-1.30); EST Glomerular Filtration Rate 96 mL/min (>60); Est Glom Filt Rate - Afr Amer 116 mL/min (>60); Globulin 4.1 g/dL (2.2-4.2); Glucose 81 mg/dL (74-106); Potassium 4.7 mmol/L (3.5-5.1); Sodium Level 139 mmol/L (136-145)
== END | disposition home or self-care (01) ==
LOC: OLS.SW1020 05:00
PROVIDERS: Visit Provider Family Medicine
DX: I10 Essential (primary) hypertension (principal); D64.9 Anemia, unspecified
CPT/HCPCS: 36415; 80053; 85025

== ENCOUNTER → 2021-08-18 | Outpatient (REF) | payer MEDICAID, SELFPAY ==
[2021-08-18 09:24] LABS: Valproic Acid (Depakene) Level 112 ug/mL (50-100)
[2021-08-25 14:01] LABS: KEPPRA (LEVETIRACETAM) 37.2 ug/mL (10.0-40.0)
== END | disposition home or self-care (01) ==
LOC: OLS.SW1020 04:00
PROVIDERS: Visit Provider Family Medicine
DX: R56.9 Unspecified convulsions (principal)
CPT/HCPCS: 36415; 80164; 80177

== ENCOUNTER → 2021-09-02 | Outpatient (REF) | payer MEDICAID, SELFPAY ==
[2021-09-02 08:48] LABS: Absolute Lymphocyte Count 2.66 X10^3/uL (0.83-4.51); Absolute Neutrophil Count 1.5 X10^3/uL (2.0-7.7); Basophil# 0.01 X10^3/uL; Basophil% 0.2 % (0-1); Eosinophil# 0.05 X10^3/uL; Hematocrit 36.5 % (40-54); Lymphocyte # 2.66 X10^3/ul (0.83-4.51); Lymphocyte % 55.8 % (19-41); Mean Corp Hgb Conc 32.9 g/dL (32-36); Mean Corpuscular Hgb 30.2 pg (27.0-32.0); Mean Corpuscular Volume 91.9 fL (80-94); Mean Platelet Vol. 10.5 fl (6.2-12.0); Monocyte# 0.52 X10^3/uL; Monocyte% 10.9 % (0-10); NRBC Flagged by Analyzer 0 % (0-5); Neutrophil # 1.52 X10^3/uL (2.7-7.7); Neutrophil % 31.9 % (47-70); Platelet Count 145 K/mm3 (150-450); RBC Distribution Width CV 14.8 % (11.6-14.6); RBC Distribution Width SD 50.3 fl (35.1-43.9); Red Blood Count 3.97 M/mm3 (4.6-6.2); White Blood Count 4.8 K/mm3 (4.4-11.0)
[2021-09-02 08:59] LABS: ALB/GLOB Ratio 0.7 RATIO (0.9-2.4); AST(SGOT) 9 U/L (15-37); Alanine Aminotransfer ALT/SGPT 14 U/L (16-61); Albumin, Serum 2.7 g/dL (3.2-5.0); Alkaline Phosphatase 71 U/L (45-117); Anion Gap 5 (5-15); BUN 13 mg/dL (7-18); Calcium,Total 9.3 mg/dL (8.5-10.1); Chloride 109 mmol/L (98-107); EST Glomerular Filtration Rate 98 mL/min (>60); Est Glom Filt Rate - Afr Amer 119 mL/min (>60); Globulin 3.8 g/dL (2.2-4.2); Glucose 86 mg/dL (74-106); Potassium 4.1 mmol/L (3.5-5.1); Protein, Total 6.5 g/dL (6.4-8.2); Sodium Level 141 mmol/L (136-145)
== END | disposition home or self-care (01) ==
LOC: OLS.SW1020 04:00
PROVIDERS: Visit Provider Family Medicine
DX: R53.81 Other malaise (principal)
CPT/HCPCS: 36415; 80053; 85025

== ENCOUNTER → 2021-09-29 | Outpatient (REF) | payer MEDICAID, SELFPAY ==
[2021-09-29 08:21] LABS: Absolute Lymphocyte Count 2.92 X10^3/uL (0.83-4.51); Absolute Neutrophil Count 1.1 X10^3/uL (2.0-7.7); Basophil# 0.03 X10^3/uL; Basophil% 0.7 % (0-1); Eosinophil# 0.05 X10^3/uL; Eosinophils% 1.1 % (0-5); Hematocrit 38.4 % (40-54); Hemoglobin 12.5 g/dL (13.0-16.5); Lymphocyte # 2.92 X10^3/ul (0.83-4.51); Lymphocyte % 65.3 % (19-41); Mean Corp Hgb Conc 32.6 g/dL (32-36); Mean Corpuscular Hgb 29.7 pg (27.0-32.0); Mean Corpuscular Volume 91.2 fL (80-94); Mean Platelet Vol. 10.9 fl (6.2-12.0); Monocyte# 0.35 X10^3/uL; Monocyte% 7.8 % (0-10); NRBC Flagged by Analyzer 0 % (0-5); Neutrophil # 1.11 X10^3/uL (2.7-7.7); Neutrophil % 24.9 % (47-70); Platelet Count 135 K/mm3 (150-450); RBC Distribution Width CV 14.3 % (11.6-14.6); RBC Distribution Width SD 47.8 fl (35.1-43.9); Red Blood Count 4.21 M/mm3 (4.6-6.2); White Blood Count 4.5 K/mm3 (4.4-11.0)
[2021-09-29 08:46] LABS: ALB/GLOB Ratio 0.8 RATIO (0.9-2.4); AST(SGOT) 16 U/L (15-37); Alanine Aminotransfer ALT/SGPT 20 U/L (16-61); Alkaline Phosphatase 65 U/L (45-117); Anion Gap 4 (5-15); BUN 8 mg/dL (7-18); BUN/Creat Ratio 8.3 RATIO (10-20); Calcium,Total 9.1 mg/dL (8.5-10.1); Chloride 109 mmol/L (98-107); Creatinine, Serum 0.97 mg/dL (0.70-1.30); EST Glomerular Filtration Rate 102 mL/min (>60); Est Glom Filt Rate - Afr Amer 123 mL/min (>60); Globulin 3.7 g/dL (2.2-4.2); Glucose 79 mg/dL (74-106); Protein, Total 6.7 g/dL (6.4-8.2); Sodium Level 141 mmol/L (136-145)
== END | disposition home or self-care (01) ==
LOC: OLS.SW1020 05:00
PROVIDERS: Visit Provider Family Medicine
DX: R53.81 Other malaise (principal)
CPT/HCPCS: 36415; 80053; 85025